=== PATIENT | female | born 1950 | race Caucasian/White ===

== ENCOUNTER → 2016-10-14 | Outpatient (CLI) | payer BC ==
--- NOTE | 2016-10-16 09:17 | RADONC ---
RADIATION ONCOLOGY FOLLOWUP CONSULTATION NOTE DATE: 10/14/2016 CHART NUMBER: [id number] DIAGNOSIS: Uterine cancer, stage IIIA, [id number]. ECOG PERFORMANCE STATUS: 0. FOLLOWUP CONSULTATION NOTE: Ms. Vega is a very pleasant, 66-year-old white female with the diagnosis of a stage IIIA, [id number] endometrial serous carcinoma who originally presented to us on 06/24/2016 for consideration of the external beam portion of her treatment. Since she was last seen by us, she has been receiving systemic therapy with medical oncology and had her last chemotherapy yesterday with carboplatin and Taxol. Then, she was seen by us. She has undergone chemotherapy consisting of six cycles of carboplatin and Taxol. Her last chemotherapy was yesterday. She is now presenting for discussion of the external beam portion of her treatment. REVIEW OF SYSTEMS: The patient's review of systems is noncontributory. Denies nausea, vomiting, fevers, chills, night sweats, diplopia, headaches, anxiety or depression, anorexia, weight loss, visual disturbances, chest pain, urinary or bowel difficulties, bone pain, or neurological problems. PHYSICAL EXAMINATION: The patient is a well-developed, well-nourished, 66-year-old female, in no acute distress. HEENT exam is normocephalic, atraumatic. Extraocular movements are intact. There is no palpable cervical, supraclavicular, infraclavicular, axillary, or inguinal lymphadenopathy present. Lungs are clear to auscultation and percussion. Heart has a regular rate and rhythm. Abdomen is benign with no hepatosplenomegaly, masses, or tenderness. Skeletal examination reveals no tenderness to pressure or percussion of the bony skeleton. Extremities reveal no clubbing, cyanosis, or edema. Neurologic exam is grossly intact, as is the remainder of the physical examination. ASSESSMENT: Clearly the patient is a candidate for external beam radiation therapy and so informed her. I have discussed with the patient in detail the potential benefits as well as possible acute and chronic sequelae of external beam radiation therapy. We went over the logistics of treatment planning, simulation and subsequent fractionated daily radiation treatments. I have scheduled the patient to initiate simulation either the end of next week or the beginning of the week after. Radiation will then begin subsequently. Thank you for allowing us to participate in the care of this very pleasant woman. If I could be of any further assistance or provide you with any information, please free to contact me anytime. As always, warm regards. cc: MD Neville Calix MD *Eder Farris MD *Jorge Rojas MD
== END ==
LOC: M ONCR 12:58
PROVIDERS: ATTEND Radiology Radiation Oncology
DX: C54.1 Malignant neoplasm of endometrium (principal); C57.02 Malignant neoplasm of left fallopian tube; C57.01 Malignant neoplasm of right fallopian tube

== ENCOUNTER 2016-10-22 14:32 | Outpatient (RCR) | payer BC ==
--- NOTE | 2016-10-23 11:28 | RADONC ---
RADIATION ONCOLOGY SIMULATION NOTE DATE: 10/23/2016 Ms. Vega was taken to the CT scan for CT simulation of her pelvic field. CT was accomplished without difficulty or discomfort. Radiation treatment planning is underway and radiation treatments will begin subsequently. An immobilization device was created without difficulty or discomfort. It will be used throughout the course of treatment. I was physically present throughout the course of CT simulation.
--- NOTE | 2016-11-04 07:10 | RADONC ---
RADIATION ONCOLOGY PROGRESS NOTE: DATE: 11/03/2016 In x-rays and pacing Niru PET ER S 1951 Ms. Vega underwent her first fraction of 180 cGy today to her pelvis. It was tolerated without difficulty or discomfort. The patient's review of systems is unremarkable. Denies nausea, vomiting, fevers, chills, night sweats, diplopia, headaches, anxiety or depression, anorexia, weight loss, visual disturbances, chest pain, urinary or bowel difficulties, bone pain, or neurological problems. PHYSICAL EXAMINATION: Clearly the patient's skin showed no evidence of radiation change since today was her first fraction. The remainder of her physical exam remains unchanged as well. Ms. Vega tolerated her first fraction without difficulty and radiation will continue as scheduled.
--- NOTE | 2016-11-11 08:33 | RADONC ---
RADIATION ONCOLOGY PROGRESS NOTE DATE: 11/10/2016 CHART NUMBER: [id number]. PROGRESS NOTE: Ms. Vega is presently at a dose of 900 cGy to her pelvis and is tolerating treatments quite well at this point with no complaints related to her radiation therapy. She is having no significant urinary or bowel difficulties and no bone pain. REVIEW OF SYSTEMS: The patient's review of systems is noncontributory. Denies nausea, vomiting, fevers, chills, night sweats, diplopia, headaches, anxiety or depression, anorexia, weight loss, visual disturbances, chest pain, urinary or bowel difficulties, bone pain, or neurological problems. PHYSICAL EXAMINATION: The patient's skin is in good condition with no evidence of radiation change present. There is no moist or dry desquamation. The remainder of her physical exam remains unchanged. Ms. Vega is tolerating treatments quite well and radiation will continue as scheduled.
--- NOTE | 2016-11-18 07:58 | RADONC ---
RADIATION ONCOLOGY PROGRESS NOTE DATE: 11/17/2016 CHART NUMBER: [id number] Ms. Vega is presently at a dose of 1080 cGy to her pelvis and is tolerating treatments quite well at this point with no complaints related to her radiation therapy. She is having no urinary or bowel difficulties and no bone pain. The patient's review of systems is noncontributory. She denies nausea, vomiting, fevers, chills, night sweats, diplopia, headaches, anxiety or depression, anorexia, weight loss, visual disturbances, chest pain, urinary or bowel difficulties, bone pain, or neurological problems. PHYSICAL EXAMINATION: The patient's skin is in good condition with no evidence of radiation change present. There is no moist dry desquamation. The remainder of physical exam remains unchanged. Ms. Vega is tolerating treatments quite well and radiation will continue as scheduled.
== END 2016-11-21 ==
LOC: M ONCR 14:32
PROVIDERS: ATTEND Radiology Radiation Oncology
DX: C54.1 Malignant neoplasm of endometrium (principal); C57.02 Malignant neoplasm of left fallopian tube; C57.01 Malignant neoplasm of right fallopian tube

== ENCOUNTER → 2016-10-23 | Outpatient (CLI) | payer BC | LOC: M RAD 08:33 | PROVIDERS: ATTEND Radiology Radiation Oncology | DX: C54.1 Malignant neoplasm of endometrium (principal) ==

== ENCOUNTER 2016-11-24 08:57 | Outpatient (RCR) | payer BC ==
--- NOTE | 2016-11-25 09:33 | RADONC ---
RADIATION ONCOLOGY PROGRESS NOTE DATE: 11/24/2016 CHART NUMBER: [id number]. PROGRESS NOTE: Ms. Vega is presently at a dose of 1800 cGy to her pelvis and was last treated on 11/21/2016. She was not treated today secondary to machine breakdown. As of Thursday, she had been tolerating her treatments quite well. Ms. Vega is scheduled to resume radiation tomorrow.
--- NOTE | 2016-12-01 14:51 | RADONC ---
RADIATION ONCOLOGY PROGRESS NOTE DATE: 12/01/2016 CHART NUMBER: [id number]. Ms. Vega is thus far at a dose of 2520 cGy and was last treated on Thursday11/28/2016. The patient was not treated today secondary to machine breakdown. The patient presents today however reporting that she is doing quite well with no significant complaints at this time related to her radiation therapy or disease other than some diarrhea. She has no urinary problems and no other difficulties. REVIEW OF SYSTEMS: The patient's review of systems is positive for diarrhea, but is otherwise noncontributory. She denies nausea, vomiting, fevers, chills, night sweats, diplopia, headaches, anxiety or depression, anorexia, weight loss, visual disturbances, chest pain, urinary or bowel difficulties, bone pain, or neurological problems. PHYSICAL EXAMINATION: The patient's skin is in good condition with no evidence of radiation change present. There is no moist or dry desquamation. The remainder of her physical exam remains unchanged. Ms. Vega is tolerating treatments quite well and radiation will continue as scheduled.
--- NOTE | 2016-12-09 07:56 | RADONC ---
RADIATION ONCOLOGY PROGRESS NOTE DATE: 12/08/2016 CHART NUMBER: PROGRESS NOTE: Ms. Vega is presently at a dose of 3240 cGy to her pelvis and is tolerating treatments quite well at this point with no complaints related to her radiation therapy. She is having no significant diarrhea or other problems. REVIEW OF SYSTEMS: The patient's review of systems is noncontributory. Denies nausea, vomiting, fevers, chills, night sweats, diplopia, headaches, anxiety or depression, anorexia, weight loss, visual disturbances, chest pain, urinary or bowel difficulties, bone pain, or neurological problems. PHYSICAL EXAMINATION: The patient's skin is in good condition with no evidence of moist or dry desquamation. The remainder of her physical exam remains unchanged. Ms. Vega is tolerating treatments quite well and radiation will continue as scheduled.
--- NOTE | 2016-12-11 09:28 | RADONC ---
RADIATION ONCOLOGY PROGRESS NOTE DATE: 12/11/2016 CHART NUMBER: [id number] I have had a very lengthy discussion with Dr. Rojas regarding the possibilities of a brachytherapy boost for Albertina Vega. We discussed the case in detail, including her present GI discomfort and difficulties. I made clear that the patient is unsure of whether or not she wishes to attempt brachytherapy. After lengthy discussion, both Dr. Rojas and myself, have agreed that there is no good data showing a survival benefit or a significant increase in local control from adding brachytherapy in this patient who has had chemotherapy, surgery and full external beam radiation therapy. In light of her GI problems and rectal discomfort, therefore, we are not recommending a brachytherapy boost for this patient. I am therefore not sending the patient for examination and discussion with Dr. Rojas. We will place this patient on discussion list for multidisciplinary tumor conference next week.
--- NOTE | 2016-12-16 10:00 | RADONC ---
RADIATION ONCOLOGY PROGRESS NOTE: DATE OF SERVICE: 12/15/2016 CHART NO: [id number] Ms. Vega is presently at a dose of 4140 cGy to her pelvis and continues to have loose bowel movements. She has no other complaints at this time related to her radiation therapy or disease. The patient's review of systems is positive for loose bowel movements but is otherwise noncontributory. She denies nausea, vomiting, fevers, chills, night sweats, diplopia, headaches, anxiety or depression, anorexia, weight loss, visual disturbances, chest pain, urinary or bowel difficulties, bone pain, or neurological problems. PHYSICAL EXAMINATION: The patient's skin on physical exam is in good condition with no evidence of moist or dry desquamation. The remainder of her physical exam remains unchanged. The patient is continuing with radiation at this point. She only has two more days prior to completion. I had a conversation with the patient telling her that I spoke with Dr. Rojas who agreed that she would not recommend brachytherapy is a boost in this patient that is already having rectal issues. I agree with Dr. Rojas. I do not think brachy would add significantly to the local control rate in this patient Therefore, she will complete as scheduled in 2 days.
--- NOTE | 2016-12-23 12:44 | RADONC ---
RADIATION ONCOLOGY TREATMENT SUMMARY: DATE OF SERVICE: 12/22/2016 CHART NO: 16 - 180 DIAGNOSIS: Uterine cancer. STAGE: Stage III A, T3a N0M0 ECOG PERFORMANCE STATUS: 0 Ms. Vega is a delightful 66-year-old white female with the diagnosis of a stage III A, [id number] endometrial serous carcinoma who presented to us status post hysterectomy and chemotherapy for consideration of postoperative external beam radiation therapy in an attempt to achieve local control. We treated the patient to her pelvis for a total dose of 4500 cGy delivered in 25 fractions of 180 cGy each over 44 elapsed days from 11/03/2016 through 12/17/2016. The patient's pelvis was treated on a linear accelerator utilizing an 18 MV photon beam via 3D conformal therapy utilizing anteriorly, posteriorly left and right lateral mendoza. Ms. Vega tolerated her treatments fairly well but did develop some loose bowel movements, which required a short treatment break. She was subsequently able to complete therapy as prescribed. I have discussed this case with the patient, as well as with Dr. Rojas, to see whether or not she would benefit from an addition brachytherapy boost. Considering her rectal issues and loose bowel movements, Dr. Rojas and I have agreed that brachytherapy would probably not be worth doing. Any benefit would be minimal and would risk further quality of life issues. She is therefore complete at this time. I have scheduled the patient to see me again in 1 month for further followup. She will also continue to be followed by her other physicians as well. cc: Kristopher Lantigua MD *Eder Farris MD *Jorge Rojas MD [facility] HOSPITALJuliette
== END 2016-12-21 ==
LOC: M ONCR 08:57
PROVIDERS: ATTEND Radiology Radiation Oncology
DX: C54.1 Malignant neoplasm of endometrium (principal); C57.02 Malignant neoplasm of left fallopian tube; C57.01 Malignant neoplasm of right fallopian tube

== ENCOUNTER → 2017-01-21 | Outpatient (CLI) | payer BC ==
--- NOTE | 2017-01-21 15:03 | RADONC ---
RADIATION ONCOLOGY FOLLOWUP NOTE DATE: 01/21/2017 CHART NUMBER: [id number] DIAGNOSIS: Uterine cancer. STAGE: IIIA, [id number]. ECOG PERFORMANCE STATUS: 0 FOLLOWUP NOTE: Ms. Vega is a delightful 66-year-old, white female with the diagnosis of a stage IIIA, [id number], endometrial serous carcinoma, who is presenting to us today for routine followup visit 1 month post completion of external beam radiation therapy. The patient presents today reporting that she is doing generally quite well with significant complaints at this time related to her radiation therapy or disease. She has no urinary or bowel difficulties and no bone pain. The patient's review of systems is noncontributory. She denies nausea, vomiting, fevers, chills, night sweats, diplopia, headaches, anxiety or depression, anorexia, weight loss, visual disturbances, chest pain, urinary or bowel difficulties, bone pain, or neurological problems. PHYSICAL EXAMINATION: The patient is a well-developed, well-nourished female in no acute distress. HEENT exam is normocephalic, atraumatic. Extraocular movements are intact. There is no palpable cervical, supraclavicular, infraclavicular, axillary, or inguinal lymphadenopathy present. Lungs are clear to auscultation and percussion. Heart has a regular rate and rhythm. Abdomen is benign with no hepatosplenomegaly, masses, or tenderness. Skeletal examination reveals no tenderness to pressure or percussion of the bony skeleton. Extremities reveal no clubbing, cyanosis, or edema. Neurologic exam is grossly intact, as is the remainder of the physical examination. HISTORIOGRAPHY PROFESSOR exam deferred. ASSESSMENT: The patient is clinically stable at this time. She is being followed by Dr. Gale for routine HISTORIOGRAPHY PROFESSOR examinations and Pap smears. She is scheduled see Dr. Lantigua within the next couple of weeks, who will be scheduling scans and reevaluation studies. In light of her close followup with her medical oncologist, I have set her up for routine followup in our office in 6-months' time. cc: MD Jorge Solis MD Osagie Bello, MD Jason White, MD
== END ==
LOC: M ONCR 13:53
PROVIDERS: ATTEND Radiology Radiation Oncology
DX: C54.1 Malignant neoplasm of endometrium (principal); C57.02 Malignant neoplasm of left fallopian tube; C57.01 Malignant neoplasm of right fallopian tube; Z79.899 Other long term (current) drug therapy

== ENCOUNTER → 2017-05-21 | Outpatient (CLI) | payer BC ==
[~2017-05-21] MED LIST: LIDOCAINE 2% MDV 20 ML VIAL As Ordered ONE
--- NOTE | 2017-06-03 14:27 | REPKIM ---
DATE OF PROCEDURE: 05/21/2017 PREPROCEDURE DIAGNOSIS: Endometrial cancer, right internal jugular vein Port-a-Cath. POSTPROCEDURE DIAGNOSIS: Endometrial cancer, right internal jugular vein Port-a-Cath. PROCEDURE: Removal of right internal jugular vein Port-a-Cath. SURGEON: Dr. Lucy Hinojosa BANKRUPTCY MANAGER: Jeanette Abreu. ANESTHESIA: Local with 20 mL of 2% lidocaine. COMPLICATIONS: None. SPECIMENS: None. IMPLANTS: None. INDICATION: The patient is a 67-year-old female with placement of a Port-a-Cath for chemotherapy for endometrial cancer who no longer requires the Port-a-Cath. The patient will undergo removal of the Port-a-Cath. DESCRIPTION OF PROCEDURE: The patient was taken to the angiography suite and placed supine on the angiography room table and then prepped and draped in a standard surgical fashion. The right internal jugular vein Port-a-Cath was then removed through the previously made incision for insertion the wound was then closed using #2-0 Vicryl to approximate the deep layers and #3-0 Monocryl to approximate the skin in a running subcuticular fashion. Steri-Strips and dressings were applied. The patient tolerated the procedure well. All instrument, sponge and needle counts were correct at the end of the case. There were no complications. Dr. Hinojosa was present for and directed the entire case. The patient was transferred to the [facility] and subsequently discharged in stable condition.
== END | disposition home or self-care (01) ==
LOC: M IRPRO 09:40
PROVIDERS: ATTEND Internal Medicine Medical Oncology
DX: Z45.2 Encounter for adjustment and management of vascular access device (principal); C54.1 Malignant neoplasm of endometrium

== ENCOUNTER → 2017-06-04 | Outpatient (CLI) | payer BC ==
[2017-06-04 14:31] LABS: BLOOD UREA NITROGEN 16 MG/DL (7-18); CREATININE FOR GFR 0.64 MG/DL (0.55-1.02); GLOMERULAR FILTRATION RATE > 60.0 (>45)
== END ==
LOC: M LAB 13:42
PROVIDERS: ATTEND Internal Medicine Medical Oncology
DX: C54.1 Malignant neoplasm of endometrium (principal)

== ENCOUNTER → 2017-06-10 | Outpatient (CLI) | payer BC ==
[~2017-06-10] MED LIST changes: +GASTROGRAFIN SOLUTION 30ML (Q9963) As Ordered ONE; +ISOVUE-370 76% 100ML VIAL (Q9967) As Ordered ONE; -LIDOCAINE 2% MDV 20 ML VIAL As Ordered ONE
--- NOTE | 2017-06-11 04:36 | REP ---
Clinical: History of endometrial carcinoma. Technique: Axial contrast enhanced images from the lung bases to the pubic symphysis using oral and 100 ml Isovue 370 intravenous contrast material with precontrast and delayed images of the abdomen as well as coronal and sagittal re-formations. Comparison: None. Findings: Lung bases are essentially clear. Small hiatal hernia at the gastroesophageal junction noted. Visualized portions of the heart and pericardium are normal. Liver, spleen, pancreas, bilateral adrenal glands and kidneys are normal. Cholelithiasis noted without CT evidence for acute cholecystitis or biliary ductal dilatation. The enteric system is without obstruction or acute inflammatory process. Scattered sigmoid diverticula noted without acute diverticulitis. Pelvis demonstrates normal bladder and evidence for prior hysterectomy. No obvious pelvic adenopathy or mass lesion appreciated. No pelvic fluid or ascites. No intraperitoneal or retroperitoneal adenopathy. Abdominal aorta and vasculature appears normal and without aneurysm or dissection. Surrounding musculoskeletal structures demonstrate age-related degenerative changes without focal osseous abnormality. Impression: 1. Small hiatal hernia at the gastroesophageal junction. 2. Scattered sigmoid diverticula without acute diverticulitis. 3. Evidence of prior hysterectomy. 4. No ascites, adenopathy, evidence for recurrence or mass lesion. Signed by Eder Pena MD 06/11/2017 04:27 A
--- NOTE | 2017-06-11 04:38 | REP ---
Clinical: History of endometrial carcinoma. Technique: Axial contrast enhanced images from the thoracic inlet to the upper abdomen using 100 ml Isovue 370 venous contrast material with coronal and sagittal re-formations. Comparison: 12/15/2007. Findings: The bilateral lung mendoza are well-aerated and clear. No acute consolidation, significant nodule or mass lesion appreciated. Tracheobronchial tree is patent. No pleural effusion/reaction or pneumothorax. No axillary, hilar, or mediastinal adenopathy. Mediastinum demonstrates normal thoracic aorta/pulmonary vasculature, heart and pericardium. No aortic aneurysm, dissection, cardiomegaly or pericardial effusion. Small hiatal hernia noted at the gastroesophageal junction. Upper abdomen demonstrates cholelithiasis and normal bilateral adrenal glands. Surrounding musculoskeletal structures are intact without focal osseous abnormality. Impression: Normal contrast enhanced chest CT. Small hiatal hernia. Signed by Eder Pena MD 06/11/2017 04:30 A
== END ==
LOC: M RAD 09:24
PROVIDERS: ATTEND Internal Medicine Medical Oncology
DX: C54.1 Malignant neoplasm of endometrium (principal)

== ENCOUNTER → 2017-08-05 | Outpatient (CLI) | payer BC ==
--- NOTE | 2017-08-06 10:06 | RADONC ---
RADIATION ONCOLOGY FOLLOWUP NOTE DATE: 08/05/2017 CHART NUMBER: [id number] DIAGNOSIS: Uterine cancer. STAGE: III A, [id number]. ECOG PERFORMANCE STATUS: 0. FOLLOWUP NOTE: Ms. Vega is a delightful 67-year-old white female with the diagnosis of a stage III A, [id number] endometrial serous carcinoma who is presenting to us today for routine followup visit 7-1/2 months post completion of external beam radiation therapy. The patient presents today reporting that she is doing quite well with no complaints at this time related to her radiation therapy or disease. She is having no urinary or bowel difficulties and no bone pain. REVIEW OF SYSTEMS: The patient's review of systems is noncontributory. Denies nausea, vomiting, fevers, chills, night sweats, diplopia, headaches, anxiety or depression, anorexia, weight loss, visual disturbances, chest pain, urinary or bowel difficulties, bone pain, or neurological problems. PHYSICAL EXAMINATION: The patient is a well-developed, well-nourished, 67-year-old female in no acute distress. HEENT exam is normocephalic, atraumatic. Extraocular movements are intact. There is no palpable cervical, supraclavicular, infraclavicular, axillary, or inguinal lymphadenopathy present. Lungs are clear to auscultation and percussion. Heart has a regular rate and rhythm. Abdomen is benign with no hepatosplenomegaly, masses, or tenderness. MOBILE MARKETING SPECIALIST examination refused. Skeletal examination reveals no tenderness to pressure or percussion of the bony skeleton. Extremities reveal no clubbing, cyanosis, or edema. Neurologic exam is grossly intact, as is the remainder of the physical examination. ASSESSMENT: The patient is clinically doing quite well at this time. She has not had a MOBILE MARKETING SPECIALIST exam since prior to her therapy. She reports to me that she is being seen in Neville Gale's office in the next 3-4 weeks and is scheduled have a MOBILE MARKETING SPECIALIST exam by his nurse practitioner at that time. She has refused a MOBILE MARKETING SPECIALIST examination in our office at this time. I made clear to her that she should be having routine examinations. A CT scan of the chest, abdomen and pelvis was done on June 10 and showed no evidence of recurrent or metastatic disease. I have scheduled the patient to see me again in 6 months for further followup. She will also continue to be followed by her other physicians in the meantime. She reports that she is seeing Dr. Lantigua every 3 months and is being followed routinely in Dr. Neville Gale's office and MOBILE MARKETING SPECIALIST examinations will be routinely done. cc: MD Jorge Solis MD Osagie Bello, MD Jason White, MD
== END ==
LOC: M ONCR 13:05
PROVIDERS: ATTEND Radiology Radiation Oncology
DX: C54.1 Malignant neoplasm of endometrium (principal); C57.02 Malignant neoplasm of left fallopian tube; C57.01 Malignant neoplasm of right fallopian tube

== ENCOUNTER → 2018-01-22 | Outpatient (CLI) | payer BC ==
[~2018-01-22] MED LIST changes: +GASTROGRAFIN SOLUTION 30ML (Q9963) As Ordered; -GASTROGRAFIN SOLUTION 30ML (Q9963) As Ordered ONE; +ISOVUE-370 76% 100ML VIAL (Q9967) As Ordered; -ISOVUE-370 76% 100ML VIAL (Q9967) As Ordered ONE
== END ==
LOC: M RAD 10:57
DX: C54.1 Malignant neoplasm of endometrium (principal)

== ENCOUNTER → 2018-02-17 | Outpatient (CLI) | payer BC | LOC: M ONCR 13:10 | DX: C54.1 Malignant neoplasm of endometrium (principal); C57.02 Malignant neoplasm of left fallopian tube; C57.01 Malignant neoplasm of right fallopian tube | CPT/HCPCS: G0463 ==

== ENCOUNTER → 2018-08-11 | Outpatient (CLI) | payer BC ==
[~2018-08-11] MED LIST changes: +ADV250INH INH; +FLUTISP; -GASTROGRAFIN SOLUTION 30ML (Q9963) As Ordered; -ISOVUE-370 76% 100ML VIAL (Q9967) As Ordered; +LOSA50TA73 PO; +MONT10TA2 PO; +SING10TA32 PO
--- NOTE | 2018-08-12 13:02 | RADONC ---
RADIATION ONCOLOGY FOLLOWUP NOTE: DATE: 08/11/2018 CHART NUMBER: [id number] DIAGNOSIS: Uterine cancer. STAGE: III A, [id number] ECOG PERFORMANCE STATUS: 0 Ms. Vega is a very pleasant 68-year-old white female with the diagnosis of a stage III A, [id number] endometrial serous carcinoma who is presenting to us today for routine followup visit 1-1/2 years post completion of external beam radiation therapy. The patient presents today reporting that she is doing generally quite well with no complaints at this time related to her radiation therapy or disease. She has no urinary or bowel difficulties and no bone pain. REVIEW OF SYSTEMS: The patient's review of systems is noncontributory. She denies nausea, vomiting, fevers, chills, night sweats, diplopia, headaches, anxiety or depression, anorexia, weight loss, visual disturbances, chest pain, urinary or bowel difficulties, bone pain, or neurological problems. PHYSICAL EXAMINATION: The patient is a well-developed, well-nourished female in no acute distress. HEENT exam is normocephalic, atraumatic. Extraocular movements are intact. There is no palpable cervical, supraclavicular, infraclavicular, axillary, or inguinal lymphadenopathy present. Lungs are clear to auscultation and percussion. Heart has a regular rate and rhythm. Abdomen is benign with no hepatosplenomegaly, masses, or tenderness. Breast examination reveals no masses or discharge bilaterally. Skeletal examination reveals no tenderness to pressure or percussion of the bony skeleton. Extremities reveal no clubbing, cyanosis, or edema. Neurologic exam is grossly intact, as is the remainder of the physical examination. VAMP PRESSER examination was deferred. ASSESSMENT: The patient is clinically doing well at this point. She is undergoing routine VAMP PRESSER examinations and says she will be scheduled for another one this spring. She is continuing her close followup with her primary care doctor as well as her medical oncologist, Dr. Jaimee Spencer. In light of the close followup with Dr. Spencer, I have discharged her from our followup except on a p.r.n. basis. cc: MD Jorge Solis MD [place], MD Jason White, MD
== END ==
LOC: M ONCR 13:04
PROVIDERS: ATTEND Radiology Radiation Oncology
DX: C54.1 Malignant neoplasm of endometrium (principal)

== ENCOUNTER → 2021-03-28 | Outpatient (CLI) | payer BC ==
[~2021-03-28] MED LIST changes: -LOSA50TA73 PO; +LOSA50TA88 PO; +MONT10TA10 PO; -MONT10TA2 PO
== END ==
LOC: M LABSMTC 10:16
PROVIDERS: ATTEND Anesthesiology
DX: Z01.812 Encounter for preprocedural laboratory examination (principal); Z20.822 Contact with and (suspected) exposure to COVID-19

== ENCOUNTER 2021-04-02 07:27 | Day surgery (SDC) | payer BC ==
[~2021-04-02] VITALS: Ht 152.4 cm; Wt 60.7 kg
[~2021-04-02 07:27] MED LIST changes: +NS 1,000 ML IV ONE
[2021-04-02] MEDS ORDERED: LIDOCAINE 2% 100MG/5ML SDV (FOR ANES.) As Ordered ONE (09:25)
[2021-04-02] MEDS ORDERED: propofoL 200 MG/20 ML VIAL As Ordered ONE ×2 (09:25→09:41)
--- NOTE | 2021-04-02 10:20 | ROOR ---
Patient Name: Albertina Vega Procedure Date: 04/02/2021 9:37 AM Date of : 1950 Age: 71 Room: [facility] Gender: Female Note Status: Finalized Procedure: Colonoscopy Indications: High risk colon cancer surveillance: Personal history of colonic polyps Providers: Josh Yeh MD Referring MD: Neville Gale MD Requesting Provider: Medicines: Monitored Anesthesia Care Complications: No immediate complications. Procedure: Pre-Anesthesia Assessment: - Prior to the procedure, a History and Physical was performed, and patient medications and allergies were reviewed. The patient is competent. The risks and benefits of the procedure and the sedation options and risks were discussed with the patient. All questions were answered and informed consent was obtained. Patient identification and proposed procedure were verified by the physician, the nurse and the anesthesiologist in the procedure room. Mental Status Examination: alert and oriented. Airway Examination: normal oropharyngeal airway and neck mobility. Respiratory Examination: clear to auscultation. CV Examination: normal. Prophylactic Antibiotics: The patient does not require prophylactic antibiotics. Prior Anticoagulants: The patient has taken no previous anticoagulant or antiplatelet agents. ASA Grade Assessment: II - A patient with mild systemic disease. After reviewing the risks and benefits, the patient was deemed in satisfactory condition to undergo the procedure. The anesthesia plan was to use monitored anesthesia care (MAC). Immediately prior to administration of medications, the patient was re-assessed for adequacy to receive sedatives. The heart rate, respiratory rate, oxygen saturations, blood pressure, adequacy of pulmonary ventilation, and response to care were monitored throughout the procedure. The physical status of the patient was re-assessed after the procedure. The Colonoscope was introduced through the anus and advanced to the terminal ileum, with identification of the appendiceal orifice and IC valve. The colonoscopy was performed without difficulty. The patient tolerated the procedure well. The quality of the bowel preparation was good. The terminal ileum, ileocecal valve, appendiceal orifice, and rectum were photographed. Scope insertion time was 2 minutes. Scope withdrawal time was 9 minutes. The total duration of the procedure was 11 minutes. Findings: The perianal and digital rectal examinations were normal. The terminal ileum appeared normal. Five sessile polyps were found in the descending colon, transverse colon and ascending colon. The polyps were 4 to 10 mm in size. These polyps were removed with a cold snare. Resection and retrieval were complete. Verification of patient identification for the specimen was done by the physician and nurse using the patient's name, date and medical record number. Estimated blood loss was minimal. Multiple small-mouthed diverticula were found in the sigmoid colon. There was no evidence of diverticular bleeding. Non-bleeding external and internal hemorrhoids were found during retroflexion. The hemorrhoids were medium-sized. Impression: - The examined portion of the ileum was normal. - Five 4 to 10 mm polyps in the descending colon, in the transverse colon and in the ascending colon, removed with a cold snare. Resected and retrieved. - Moderate diverticulosis in the sigmoid colon. There was no evidence of diverticular bleeding. - Non-bleeding external and internal hemorrhoids. Recommendation: - Patient has a contact number available for emergencies. The signs and symptoms of potential delayed complications were discussed with the patient. Return to normal activities tomorrow. Written discharge instructions were provided to the patient. - High fiber diet. - Continue present medications. - Use fiber, for example Citrucel, Fibercon, Konsyl or Metamucil. - Await pathology results. - Repeat colonoscopy in 3 - 5 years for surveillance based on pathology results. - Telephone GI clinic for pathology results in 2 weeks. - Return to primary care physician. Procedure Code(s): --- Professional --- 98810, Colonoscopy, flexible; with removal of tumor(s), polyp(s), or other lesion(s) by snare technique Diagnosis Code(s): --- Professional --- Z86.010, Personal history of colonic polyps K64.8, Other hemorrhoids K63.5, Polyp of colon K57.30, Diverticulosis of large intestine without perforation or abscess without bleeding CPT copyright 2019 [employer]. All rights reserved. The codes documented in this report are preliminary and upon device sales consultant review may be revised to meet current compliance requirements. Josh Yeh MD Josh Yeh MD 04/02/2021 10:20:00 AM Electronically signed by Josh Yeh MD Number of Addenda: 0 Note Initiated On: 04/02/2021 9:37 AM Estimated Blood Loss: Estimated blood loss was minimal.
[2021-04-02 10:30] VITALS: BP 156/73
== END 2021-04-02 10:39 | disposition home or self-care (01) ==
LOC: M OPP 07:27
PROVIDERS: ATTEND Internal Medicine Gastroenterology
DX: Z12.11 Encounter for screening for malignant neoplasm of colon (principal); Z86.010 Personal history of colon polyps; Z80.0 Family history of malignant neoplasm of digestive organs; K63.5 Polyp of colon; K64.8 Other hemorrhoids; Z79.899 Other long term (current) drug therapy; Z88.0 Allergy status to penicillin; Z88.1 Allergy status to other antibiotic agents; Z88.8 Allergy status to other drugs, medicaments and biological substances; Z85.42 Personal history of malignant neoplasm of other parts of uterus; Z92.3 Personal history of irradiation; Z92.21 Personal history of antineoplastic chemotherapy

== ENCOUNTER → 2021-04-19 | Outpatient (CLI) | payer BC ==
[~2021-04-19] MED LIST changes: -NS 1,000 ML IV ONE
--- NOTE | 2021-04-19 14:40 | REPMRS ---
Patient History Patient is postmenopausal and has history of other cancer at age 66. No Hormone Replacement Therapy Patient states no breast complaints today. Patient has signed MRS History Sheet. Digital Woman Screen Mammo: April 19, 2021 - Exam #: [id number] Bilateral CC and MLO view(s) were taken. Technologist: Mela Winter [employer] Prior study comparison: February 20, 2020, bilateral screening 3D/tomosynthesis, performed at [facility] [facility]. November 09, 2018, bilateral screening 3D/tomosynthesis, performed at [facility] [facility]. September 10, 2017, bilateral digital mammo screening bilat, performed at [facility]. FINDINGS: There are scattered fibroglandular densities. The Volpara volumetric breast density category is: B. There is a moderate amount of residual fibroglandular tissue which is fairly symmetric. There is no interval development of dominant mass, architectural distortion, or grouped microcalcification typical of malignancy. There has been no change in the appearance of the mammogram from the prior studies. 3-D tomosynthesis shows no additional findings. Assessment: BI-RADS/ACR category 1 mammogram. Negative Mammogram. Recommendation Routine screening mammogram of both breasts in 1 year (for women over age 40). This patient's [facility] Lifetime Breast Cancer RIsk is estimated at 5.9 %. This mammogram was interpreted with the aid of an FDA-approved computer-aided dectection system. Electronically Signed By: Gil Branham MD 04/19/21 [id number]
--- NOTE | 2021-04-19 14:58 | REP ---
INDICATION: DENSE BREAST SCREENING US. COMPARISON: Comparison is made with today's mammography. TECHNIQUE: Whole breast bilateral screening sonography. FINDINGS: Bilateral whole breast sonography demonstrates mildly heterogeneous fibroglandular background echotexture bilaterally. No cyst, mass, acoustic shadowing, or architectural distortion is seen in either breast. IMPRESSION: BI-RADS category 1 negative bilateral breast sonographic findings. <Electronically signed by Gil Branham > 04/19/21 1157
== END ==
LOC: M WHC 13:28
PROVIDERS: ATTEND Family Medicine
DX: Z12.31 Encounter for screening mammogram for malignant neoplasm of breast (principal); Z85.9 Personal history of malignant neoplasm, unspecified

== ENCOUNTER → 2022-04-21 | Outpatient (CLI) | payer BC ==
[~2022-04-21] MED LIST changes: +LOSA50TA28 PO; -LOSA50TA88 PO; -MONT10TA10 PO; +MONT10TA97 PO
== END ==
LOC: M WHC 08:38
PROVIDERS: ATTEND Family Medicine
DX: Z12.31 Encounter for screening mammogram for malignant neoplasm of breast (principal); Z85.42 Personal history of malignant neoplasm of other parts of uterus

== ENCOUNTER 2023-01-26 13:00 | Day surgery (SDC) | payer BC ==
[~2023-01-26] VITALS: Ht 152.4 cm; Wt 59.4 kg
[~2023-01-26 13:00] MED LIST changes: +FLUT50SP17; -FLUTISP; +MONT-5 PO; +OMEP40CA4 PO; -SING10TA32 PO
[2023-01-26] MEDS ORDERED: propofoL 200 MG/20 ML VIAL As Ordered ONE (15:31)
[2023-01-26] MEDS ORDERED: fentaNYL 100 MCG/2 ML INJECTION As Ordered ONE (15:31)
[2023-01-26 16:00] VITALS: BP 136/65
== END 2023-01-26 16:04 | disposition home or self-care (01) ==
LOC: M OPP 13:00
PROVIDERS: ATTEND Internal Medicine Gastroenterology
DX: K44.9 Diaphragmatic hernia without obstruction or gangrene (principal); K29.70 Gastritis, unspecified, without bleeding; I10 Essential (primary) hypertension; K21.9 Gastro-esophageal reflux disease without esophagitis; J45.909 Unspecified asthma, uncomplicated; Z85.42 Personal history of malignant neoplasm of other parts of uterus; Z92.21 Personal history of antineoplastic chemotherapy; Z92.3 Personal history of irradiation; Z88.0 Allergy status to penicillin; Z88.1 Allergy status to other antibiotic agents; Z79.899 Other long term (current) drug therapy
CPT/HCPCS: 43239; 88305; J3010

== ENCOUNTER → 2023-04-22 | Outpatient (CLI) | payer BC | LOC: M WHC 09:58 | PROVIDERS: ATTEND Nurse Practitioner | DX: Z12.31 Encounter for screening mammogram for malignant neoplasm of breast (principal); C54.1 Malignant neoplasm of endometrium ==

== ENCOUNTER → 2024-01-19 | Outpatient (CLI) | payer BC ==
[~2024-01-19] MED LIST changes: -FLUT50SP17; +FLUTISP
== END ==
LOC: M RAD 10:31
PROVIDERS: ATTEND Internal Medicine Pulmonary Disease
DX: J45.40 Moderate persistent asthma, uncomplicated (principal)

== ENCOUNTER 2024-11-08 08:33 | Day surgery (SDC) | payer BC, MEDICARE ==
[~2024-11-08] VITALS: Ht 152.4 cm; Wt 6.1 kg
[~2024-11-08 08:33] MED LIST changes: -ADV250INH INH; +ADVA1AER9 INH; +ALBU8.5H INH; +ALLE180T33 PO; +AZEL1SPR3; +FLUT1BLS5 INH; +LEVA0.6330 NEB
[2024-11-08 10:17] VITALS: TEMP 97.7
[2024-11-08 10:32] VITALS: BP 125/61; O2SAT 98
== END 2024-11-08 10:47 | disposition home or self-care (01) ==
LOC: M OPP 08:33
PROVIDERS: ATTEND Internal Medicine Gastroenterology
DX: D12.2 Benign neoplasm of ascending colon (principal); D12.0 Benign neoplasm of cecum; D12.3 Benign neoplasm of transverse colon; K57.30 Diverticulosis of large intestine without perforation or abscess without bleeding; K64.8 Other hemorrhoids; Z80.0 Family history of malignant neoplasm of digestive organs; Z86.0101 Personal history of adenomatous and serrated colon polyps